=== PATIENT | female | born 1955 | race Two or more races ===

== ENCOUNTER 2024-03-23 12:13 | Outpatient (OUT) | payer MEDICARE, SELFPAY ==
--- NOTE | 2024-03-23 12:29 | FL_ITS ---
[address] [address] Patient Name: TIFFANIE RODRIGUEZ MRN: [id number] date: 1955 Sex: F Assigned Patient Location: [place] Current Patient Location: [place] Accession/Order Number: [id number] Exam Date: 03/23/2024 12:50 Report Date: 03/23/2024 13:54 At the request of: JOSE DEL CID Procedure: FL modified barium swallow EXAMINATION: FL modified barium swallow HISTORY: dysphagia FLUORO DOSE: Not provided COMPARISON: No relevant comparison available. TECHNIQUE: A swallowing evaluation was performed with fluoroscopy in the usual manner. Standard level fluoroscopic mode of operation utilized. The procedure was recorded. Speech pathology was present FINDINGS: ORAL PHASE: Normal deglutition. PHARYNGEAL PHASE: Normal swallowing. ASPIRATION: None. STRUCTURE: Normal. No visible obstruction, stricture, or dilatation. OTHER: Negative. FL/AR modified barium swallow IMPRESSION: Normal exam Electronically authenticated by: KALEB MCLEAN Date: 03/23/2024 13:54
== END 2024-03-23 12:14 | disposition home or self-care (01) ==
LOC: FL 12:19
PROVIDERS: PCP Family Medicine; Visit Provider Nurse Practitioner Adult Health
DX: R13.12 Dysphagia, oropharyngeal phase (principal)
CPT/HCPCS: 74230; 92611